=== PATIENT | male | born 1980 | race Caucasian/White ===

== ENCOUNTER 2021-11-23 09:25 | Outpatient (CLI) | payer MEDICAID, SELFPAY ==
[2014-08-26 13:44] VITALS: BMI 31.9
[2021-11-23 09:53] LABS: Platelet Count 359 K/mm3 (150-450)
[2021-11-23 10:15] LABS: Valproic Acid (Depakene) Level < 3 ug/mL (50-100)
[2021-11-23 10:17] LABS: Hemoglobin A1c 5.3 % (3.8-5.6)
[2021-11-23 10:28] LABS: Ammonia < 10.0 umol/L (11-32)
[2021-11-23 10:33] LABS: AST(SGOT) 15 U/L (15-37); Alanine Aminotransfer ALT/SGPT 22 U/L (16-61); Cholesterol 163 mg/dL (200); High Density Lipoprotein 50 mg/dL; Prolactin 5.5 ng/mL; Triglycerides 49 mg/dL; Very Low Density Lipoprotein 10 mg/dL (5-40)
== END 2021-11-23 23:59 | disposition home or self-care (01) ==
LOC: LAB 09:31
PROVIDERS: PCP Nurse Practitioner Family; Referring Provider Psychiatry & Neurology Psychiatry; Visit Provider Psychiatry & Neurology Psychiatry
DX: Z79.899 Other long term (current) drug therapy (principal); F19.10 Other psychoactive substance abuse, uncomplicated; R53.83 Other fatigue
CPT/HCPCS: 36415; 80061; 80164; 82140; 83036; 84146; 84450; 84460; 85049

== ENCOUNTER → 2022-06-16 | Outpatient (CLI) | payer MEDICAID, SELFPAY ==
[2022-06-16 10:26] LABS: Platelet Count 275 K/mm3 (150-450)
[2022-06-16 10:58] LABS: AST(SGOT) 20 U/L (15-37); Alanine Aminotransfer ALT/SGPT 25 U/L (16-61)
[2022-06-16 10:59] LABS: Valproic Acid (Depakene) Level 63 ug/mL (50-100)
== END | disposition home or self-care (01) ==
LOC: LAB 10:03
PROVIDERS: PCP Nurse Practitioner Family; Visit Provider Psychiatry & Neurology Psychiatry
DX: Z79.899 Other long term (current) drug therapy (principal)
CPT/HCPCS: 36415; 80164; 84450; 84460; 85049

== ENCOUNTER → 2022-06-17 | Outpatient (CLI) | payer MEDICAID, SELFPAY | END | disposition home or self-care (01) | LOC: LAB 09:15 | PROVIDERS: PCP Nurse Practitioner Family; Visit Provider Psychiatry & Neurology Psychiatry | DX: Z79.899 Other long term (current) drug therapy (principal) | CPT/HCPCS: 82140 ==

== ENCOUNTER → 2022-11-28 | Outpatient (CLI) | payer MEDICAID, SELFPAY ==
[2022-11-28 10:21] LABS: Platelet Count 288 K/mm3 (150-450)
[2022-11-28 10:47] LABS: Hemoglobin A1c 5.8 % (3.8-5.6)
[2022-11-28 10:55] LABS: AST(SGOT) 15 U/L (15-37); Alanine Aminotransfer ALT/SGPT 22 U/L (16-61)
[2022-11-28 11:10] LABS: Valproic Acid (Depakene) Level 56 ug/mL (50-100)
== END | disposition home or self-care (01) ==
LOC: LAB 09:45
PROVIDERS: PCP Nurse Practitioner Family; Referring Provider Psychiatry & Neurology Psychiatry; Visit Provider Psychiatry & Neurology Psychiatry
DX: Z79.899 Other long term (current) drug therapy (principal)
CPT/HCPCS: 36415; 80164; 82140; 83036; 84450; 84460; 85049